=== PATIENT | female | born 2005 | race Hispanic/Latino ===

== ENCOUNTER 2024-02-25 17:41 | Emergency (ER) | payer SELFPAY ==
[2024-02-25 19:51] LABS: #Basophils 0.05 10x3/uL (0.0-0.2); #Eosinphils 0.16 10x3/uL (0.0-0.5); #Monocytes 0.53 10x3/uL (0.0-1.1); #Neutrophils 2.73 10x3/uL (1.5-8.4); %Basophils 0.9 % (0.0-2.0); %Eosinophils 2.8 % (0.0-6.0); %Lymphocytes 38.2 % (18.0-47.0); %Monocytes 9.4 % (0.0-10.0); %Neutrophils 48.5 % (40.0-75.0); Hematocrit 40.8 % (34.9-44.5); Hemoglobin 13.6 g/dL (12.0-15.5); Mean Corpuscular HGB CONC 33.3 g/dL (32.0-36.0); Mean Corpuscular Hemoglobin 28.5 pg (27.0-33.0); Mean Corpuscular Volume 85.4 fL (81.6-98.3); Mean Platelet Volume 9.3 fL (7.4-10.4); Platelet Count 262 10x3/uL (150-450); RBC Distribution Width 12.3 % (11.5-14.5); Red Blood Cell (RBC) Count 4.78 10x6/uL (3.90-5.03); White Blood Cell (WBC) Count 5.6 10x3/uL (3.5-10.5)
[2024-02-25 20:06] LABS: BHCG - Serum Negative (NEGATIVE); Pregs Control Background? CLEAR/WHITE (CLR/WHITE); Pregs Control Bar Appear? YES (CONTROL BAR)
[2024-02-25 20:14] LABS: ALT (SGPT) 14 U/L (8-55); AST (SGOT) 18 U/L (5-30); Albumin 3.8 g/dL (3.5-5.0); Alkaline Phosphatase 53 U/L (40-100); Anion Gap 11 mmol/L (10-20); BUN (Urea Nitrogen) 9 mg/dL (8.4-21.0); Bilirubin, Total 0.2 mg/dL (0.2-1.2); Calc. Creatinine Clearance 0 mL/min (70-130); Calcium 9.5 mg/dL (7.8-10.44); Carbon Dioxide 25 mmol/L (22-29); Chloride 106 mmol/L (98-107); Estimated GFR 130; Globulin 3.2 g/dL (2.4-3.5); Glucose 88 mg/dL (70-105); Lipase 50 U/L (8-78); Magnesium 2.1 mg/dL (1.7-2.2); Potassium 3.8 mmol/L (3.5-5.1); Sodium 138 mmol/L (136-145)
[2024-02-25 20:59] LABS: Bilirubin Neg (Negative); Blood, Urine Negative (Negative); Clarity Clear (Clear); Glucose, Urine (Dipstick) Normal (Negative); Ketone, Urine Negative (Negative); Leukocyte 100 (Negative); Nitrite Negative (Negative); Protein, Urine (Dipstick) Negative (Neg-Trace); Urobilinogen Normal mg/dL (Less than 2)
[2024-02-25 21:19] LABS: Bacteria/HPF 2+ HPF (None Seen); CAUTI Indications for Culture Dysuria,urgency,freq; RBC/HPF 0-3 HPF (0-3); Squamous Epithelial 0-3 HPF (0-3); WBC/HPF 0-3 HPF (0-3)
[2024-02-25 21:20] LABS: Mucous/LPF 1+ LPF (<2+)
[2024-02-25 21:21] LABS: Urine Culture Reflex No No
== END 2024-02-25 21:52 | disposition home or self-care (01) ==
LOC: CSHERS 17:41
DX: N39.0 Urinary tract infection, site not specified (principal)
CPT/HCPCS: 36415; 74176; 80053; 81001; 83690; 83735; 84703; 85025